=== PATIENT | female | born 1965 | race American Indian/Alaskan Native ===

== ENCOUNTER 2021-12-05 16:46 | Emergency (ER) | payer MEDICARE ==
[2021-12-05 17:26] VITALS: BP 104/55
== END 2021-12-06 10:30 | disposition left against medical advice (07) ==
LOC: ED 16:46
DX: R11.2 Nausea with vomiting, unspecified (principal); Z53.21 Procedure and treatment not carried out due to patient leaving prior to being seen by health care provider